=== PATIENT | female | born 1980 | race Caucasian/White ===

== ENCOUNTER → 2017-11-23 | Outpatient (CLI) | payer OTHER ==
[~2017-11-23] MED LIST: INSU100C SQ-INSULIN; INSU100V8 SQ; LISI-170 PO; SERT50TA5 PO
[2017-11-23 12:19] LABS: ALBUMIN 3.1 g/dL (3.4-5.0); ANION GAP 9 mmol/L (5-15); CALCIUM 8.6 mg/dL (8.5-10.1); CHLORIDE 106 mmol/L (98-107)
[2017-11-23 12:23] LABS: ALANINE AMINOTRANSFERASE 22 U/L (12-78); ALKALINE PHOSPHATASE 146 U/L (45-117); BILIRUBIN,TOTAL 0.5 mg/dL (0.2-1.0); CREATININE 0.76 mg/dL (0.55-1.02); TOTAL PROTEIN 6.7 g/dL (6.4-8.2)
== END | disposition home or self-care (01) ==
LOC: STAR 11:15
PROVIDERS: ATTEND Obstetrics & Gynecology Female Pelvic Medicine and Reconstructive Surgery
DX: Z01.818 Encounter for other preprocedural examination (principal); N94.6 Dysmenorrhea, unspecified; N92.6 Irregular menstruation, unspecified; R10.2 Pelvic and perineal pain; N39.3 Stress incontinence (female) (male)
CPT/HCPCS: 36415; 80053; 93005

== ENCOUNTER 2017-11-27 09:20 | Day surgery (SDC) | payer OTHER ==
[~2017-11-27] VITALS: Ht 160 cm; Wt 74.6 kg
[~2017-11-27 09:20] MED LIST changes: +BUPIVACAINE/PF-EPI 0.25% 1:200K ONE; +NEOMY/POLYMYXIN B GU IRR. 1 ML IRRIG ONE
[2017-11-27] MEDS ORDERED: LACTATED RINGERS 1,000 ML IV SCH (10:06)
[2017-11-27 10:14] VITALS: BP 133/84
[2017-11-27] MEDS ORDERED: MIDAZOLAM 1 MG/ML, 2ML ONE (11:41)
[2017-11-27] MEDS ORDERED: FENTANYL PF 100 MCG/2ML ONE (11:41)
[2017-11-27] MEDS ORDERED: LABETALOL 5MG/ML, 20ML IV PRN (13:30)
[2017-11-27] MEDS ORDERED: FENTANYL PF 100 MCG/2ML IV PRN (13:30)
[2017-11-27] MEDS ORDERED: MIDAZOLAM 1 MG/ML, 2ML IV PRN (13:30)
[2017-11-27] MEDS ORDERED: OXYcodone 5 MG/5 ML ORAL.SOL UDC PO PRN (13:30)
[2017-11-27] MEDS ORDERED: ONDANSETRON 2MG/ML, 2ML IVPush PRN (13:30)
[2017-11-27] MEDS ORDERED: HYDROmorphone 1 MG/ML, 1ML IV PRN (13:30)
[2017-11-27] MEDS ORDERED: MEPERIDINE/PF 50 MG/ML ONE (13:39)
[2017-11-27] MEDS ORDERED: ACETAMINOPHEN 650 MG/20.3 ML UDC ONE (13:39)
[2017-11-27] MEDS ORDERED: ACETAMINOPHEN 325 MG TABLET ONE (13:39)
[2017-11-27] MEDS ORDERED: OXYcodone 5 MG/5 ML ORAL.SOL UDC ONE (13:40)
[2017-11-27] MEDS: MEPERIDINE/PF 25MG/0.5ML IVPush PRN ×2 (13:48→13:58)
[2017-11-27] MEDS ORDERED: ACETAMINOPHEN 325 MG TABLET PO PRN (14:00)
[2017-11-27] MEDS ORDERED: ROCURONIUM 10MG/ML,5ML ONE (15:52)
[2017-11-27] MEDS ORDERED: DEXAMETHASONE 4 MG/ML, 1ML ONE (15:52)
[2017-11-27] MEDS ORDERED: PROPOFOL 10 MG/ML, 20ML ONE (15:52)
[2017-11-27] MEDS ORDERED: ONDANSETRON 2MG/ML, 2ML ONE (15:52)
[2017-11-27] MEDS ORDERED: CEFAZOLIN 1,000 MG ONE (15:52)
[2017-11-27] MEDS ORDERED: METOCLOPRAMIDE 5 MG/ML, 2ML ONE (15:52)
[2017-11-27] MEDS ORDERED: GLYCOPYRROLATE 0.2MG/1ML, 5ML ONE (15:52)
[2017-11-27] MEDS ORDERED: NEOSTIGMINE 1 MG/ML, 10ML ONE (15:52)
[2017-11-27] MEDS ORDERED: HYDROmorphone 2 MG/ML, 1ML IVPush PRN (17:00)
[2017-11-27] MEDS ORDERED: IBUPROFEN 600 MG TABLET PO PRN (17:00)
[2017-11-27] MEDS ORDERED: KETOROLAC 30 MG/1 ML IVPush PRN (17:00)
[2017-11-27] MEDS ORDERED: OXYcodone/APAP 5/325MG TABLET PO PRN (17:00)
== END 2017-11-27 18:15 | disposition home or self-care (01) ==
LOC: OUT 09:20
PROVIDERS: ATTEND Obstetrics & Gynecology Female Pelvic Medicine and Reconstructive Surgery
DX: N92.1 Excessive and frequent menstruation with irregular cycle (principal); N94.6 Dysmenorrhea, unspecified; N39.3 Stress incontinence (female) (male); N94.10 Unspecified dyspareunia; N81.89 Other female genital prolapse; I10 Essential (primary) hypertension; E11.9 Type 2 diabetes mellitus without complications; F32.9 Major depressive disorder, single episode, unspecified; Z98.890 Other specified postprocedural states; Z79.899 Other long term (current) drug therapy
CPT/HCPCS: 57265; 57282; 57288; 58552; 81025; 82962; 88307; C1771; J0690; J1100; J1170; J1885; J2175; J2250; J2405; J2704; J2710; J2765; J3010; J3490